=== PATIENT | male | born 1990 | race Caucasian/White ===

== ENCOUNTER → 2019-09-11 | Outpatient (CLI) | payer OTHER ==
--- NOTE | 2019-09-12 18:48 | REP ---
Radionuclide thyroid uptake and scan: History: Thyrotoxicosis. Technique: 356.0 microcuries of I 123 sodium iodine is ingested and 24 hour uptake value is acquired. Functional images are acquired. Scintigraphic findings: The 24 hour uptake value is increased, 58.68%. Normal range is 25-35%. Functional images demonstrate homogeneous uptake in bilaterally enlarged thyroid lobes. No cold or warm lesion. Impression: Findings consistent with Graves disease. Electronically Signed by Cesario Kramer MD 09/13/2019 06:18 P
== END ==
LOC: M RAD 13:03
PROVIDERS: ATTEND Internal Medicine Endocrinology, Diabetes & Metabolism
DX: E05.00 Thyrotoxicosis with diffuse goiter without thyrotoxic crisis or storm (principal)
CPT/HCPCS: 78012; A9516

== ENCOUNTER → 2019-10-01 | Outpatient (CLI) | payer OTHER | LOC: M RAD 12:29 | PROVIDERS: ATTEND Internal Medicine Endocrinology, Diabetes & Metabolism | DX: E05.00 Thyrotoxicosis with diffuse goiter without thyrotoxic crisis or storm (principal) ==

== ENCOUNTER → 2020-11-03 | Outpatient (CLI) | payer SELFPAY | LOC: M LABSMTC 19:25 | PROVIDERS: ATTEND Pediatrics | DX: Z20.828 Contact with and (suspected) exposure to other viral communicable diseases (principal) ==

== ENCOUNTER → 2021-05-08 | Outpatient (CLI) | payer OTHER ==
[2021-05-08 16:23] LABS: FREE T4 1.31 NG/DL (0.76-1.46); THYROID STIMULATING HORMONE 0.547 uIU/ML (0.358-3.740)
== END ==
LOC: M LAB 14:51
PROVIDERS: ATTEND Nurse Practitioner Family
DX: E89.0 Postprocedural hypothyroidism (principal)

== ENCOUNTER → 2021-11-24 | Outpatient (CLI) | payer OTHER ==
[2021-11-24 11:06] LABS: THYROID STIMULATING HORMONE 1.7 uIU/ML (0.358-3.740); THYROXINE (T4) 8.5 UG/DL (4.5-12.0)
[2021-11-25 08:47] LABS: FREE T4 1.16 NG/DL (0.76-1.46)
== END ==
LOC: M LAB 08:53
PROVIDERS: ATTEND Nurse Practitioner Family
DX: E89.0 Postprocedural hypothyroidism (principal)